=== PATIENT | female | born 2000 | race Hispanic/Latino ===

== ENCOUNTER 2024-09-25 23:06 | Emergency (ER) | payer MEDICAID ==
[~2024-09-25] VITALS: Ht 144.8 cm; Wt 42.7 kg
[2024-09-25] MEDS: TETRACAINE HCL 0.5% 4 ML OPHTH SOLN OP ONE (23:46)
[2024-09-25] MEDS: FLUORESCEIN SODIUM 1 STRIP STRIP OP ONE (23:46)
[2024-09-26] MEDS ORDERED: CLIN-141 PO (00:21)
--- NOTE | 2024-09-26 00:21 | ERN ---
ED Note History of Present Illness Stated Complaint: RT EYE PAIN AND SWELLING Chief Complaint: Eye Problems Time Seen by MD: 23:08 Time Seen by Midlevel: 23:08 Dictation: The patient is a 23-year-old female with no past medical history who presents to the emergency department with complaints of right upper eyelid swelling onset prior to arrival. Patient denies any trauma, denies any visual deficits, denies any insect bites. Patient denies any fevers Allergies: Coded Allergies: No Known Allergies (Unverified Allergy, Unknown, 09/25/24) Past Medical History Past Medical History: No Pertinent History Surgical History: None LMP: Sep 08, 2024 RN Note Reviewed/Agreed w/PFSH: Yes Review of System Dictation Constitutional: Negative for fever,chills, and weight loss Eyes: Negative for injury and discharge positive for right eye swelling, redness ENT: Negative for injury,pain or swelling Cardiovascular: Negative for chest pain, palpitations, and edema Respiratory: Negative for shortness of breath, cough, and wheezing, Abdomen/GI: Negative for abdominal pain, nausea, vomiting, diarrhea, and constipation Back: Negative for injury and pain : Negative for injury, bleeding and discharge MS/Extremity: Negative for injury and deformity Skin: Negative for rash, and discoloration Neuro: Negative for headache, weakness, numbness, tingling, and seizure Psych: Negative for suicide ideation, homicidal ideation, and hallucinations Initial Vital Sign VS Vital Signs Date Time Temp Pulse Resp B/P (MAP) Pulse Ox O2 Delivery O2 Flow Rate FiO2 09/25/24 23:07 97.9 67 18 150/91 100 Room Air 09/25/24 23:09 0 21 Physical Exam Dictation Vital Signs reviewed General Appearance: Alert, oriented x 3, no acute distress, well developed, nourished. Head and Face: non-traumatic. Eyes: PERRL, pink conjunctivas, eyelid no trauma, , right upper eyelid swelling, anterior chamber with arcus senilis. Ears: Pinnas intact and no signs of trauma or erythema ear canals clear and no discharge TM no erythema Nose: No discharge, no bleeding. Oropharynx: Mouth normal, tongue pink. pharynx clear,no erythema, tonsils no exudates, no abscesses noted, mucous membrane moist Neck: Supple, non-tender, no thyromegaly, no masses, no JVD, no bruits Breast:Deferred Chest:No tenderness, no crepitus, no paradoxical movement, no retractions Lungs:Clear, well-ventilated, symmetric, no rales, no wheezing, no rhonchi, no stridor, good breath sounds bilaterally Heart: Regular rate, regular rhythm, no murmur, no gallops Vascular: no peripheral edema, Abdomen: Soft, positive bowel sounds, nondistended, no guarding, nontender, no rebound, no masses no hepatomegaly, no splenomegaly, no Toussaint's sign, no hernias. Rectal: Deferred Genital: Deferred Neurological: Normal speech, motor function intact, sensory function intact Musculoskeletal: Neck nontender, full range of motion, back nontender, full range of motion, Extremities: nontender, full range of motion Skin: Color pink, dry, no turgor, no rash, no lacerations, no abrasions, no contusions. Lymphatic: Deferred Results (Laboratory/Radiology) Labs Reviewed?: Yes ED Course ED Course Orders Procedure Category Date Status Time Fluorescein Sodium PHA 09/25/24 Complete (Nullm-Z-Lbefk At) 23:30 Tetracaine Hcl PHA 09/25/24 Complete (Pontocaine 0.5% 23:30 Clindamycin 150mg Cap PHA 09/26/24 Transmitted (Cleocin 150mg Cap 00:30 Current Medications Medications (Trade) Dose Ordered Sig/Raz Route PRN Reason Start Time Stop Time Status Last Admin Dose Admin Fluorescein Sodium (Leyoi-V-Wndvh At) 1 strip ONCE ONCE OP 09/25/24 23:30 09/25/24 23:37 DC Tetracaine HCl (Pontocaine 0.5% [facility]) 1 drop ONCE ONCE OP 09/25/24 23:30 09/25/24 23:37 DC 09/25/24 23:46 Vital Signs Date Time Temp Pulse Resp B/P (MAP) Pulse Ox O2 Delivery O2 Flow Rate FiO2 09/25/24 23:09 98.4 82 18 156/74 98 Room Air* 0 21 09/25/24 23:07 97.9 67 18 150/91 100 Room Air Medical Decision Making MDM The patient is a 23-year-old female with no past medical history who presents to the emergency department with complaints of right upper eyelid swelling onset prior to arrival. Patient denies any trauma, denies any visual deficits, denies any insect bites. Patient denies any fevers Patient with mild swelling to upper eyelid. On eye exam there was no abrasions or foreign bodies in eye. Who is start patient on antibiotics and instruct patient to follow up with PCP and ophthalmology. Patient denies any visual deficits. On physical exam patient is in no acute distress. Differential diagnosis: Blepharitis, foreign body in eye, corneal abrasion, cellulitis Need for hospitalization: Patient does not meet criteria for hospitalization. There are no social concerns with this patient. DX & DISP Disposition: Discharge Departure Impression: Primary Impression: Periorbital cellulitis of right eye Condition: Stable Scripts Clindamycin HCl (Clindamycin HCl) 300 Mg Capsule 1 CAP PO QID for 7 Days, #28 CAP 0 Refills Prov: MICHELLE GE 09/26/24 Additional Instructions: Please follow up with your primary doctor in 1-2 days. Follow up with Ophthalmology. If anything worsens please return to ER. [facility] [address] [place] [phone] FOLLOW-UP WITH PRIMARY CARE PROVIDER IN 1 TO 2 DAYS. TAKE MEDICATIONS DIRECTED HERE IN THE EMERGENCY ROOM. OKAY TO CONTINUE HOME MEDICATIONS UNLESS OTHERWISE DISCUSSED DURING YOUR VISIT IN THE EMERGENCY ROOM TODAY. RETURN TO YOUR NEAREST EMERGENCY ROOM IF SYMPTOMS WORSEN OR IF THERE IS NO IMPROVEMENT. CALL 911 IF YOU NEED IMMEDIATE ASSISTANCE. TAKE TYLENOL [id number] NEEDED AND IF NO CONTRAINDICATIONS ARE PRESENT. INCREASE ORAL HYDRATION. A WOUND CULTURE OR URINE CULTURE WAS ORDERED HERE IN THE EMERGENCY ROOM DEPARTMENT PLEASE FOLLOW-UP WITH PRIMARY CARE PROVIDER AND ADVISE THEM TO GET REPEAT PORTS FROM OUR FACILITY. IF YOU HAD ANY JENNY WRAP/SPLINTS THAT WERE APPLIED HERE, PLEASE DO NOT REMOVE THEM UNTIL YOU SEE YOUR PRIMARY CARE OR SPECIALTY. Referrals: NONE (PCP) Time of Disposition: 00:21 I have reviewed the case, and I agree with, Diagnosis and Plan MICHELLE GE Sep 26, 2024 00:21
[2024-09-26] MEDS: CLINDAMYCIN 150 MG CAP PO ONE (00:42)
[2024-09-26 00:52] VITALS: BP 124/62; PULSE 78; RESP 20; TEMP 98.5; O2SAT 99
== END 2024-09-26 01:03 | disposition home or self-care (01) ==
LOC: EDH 23:06
DX: L03.213 Periorbital cellulitis (principal)
CPT/HCPCS: 99284